=== PATIENT | female | born 1960 | race Caucasian/White ===

== ENCOUNTER 2018-04-17 15:53 | Outpatient (REF) | payer MEDICARE, MEDICAID, SELFPAY ==
[2018-04-17 16:39] LABS: ALT 28 U/L (12-78); AST 14 U/L (15-37); HDL Cholesterol 44 mg/dL (40-60); LDL CHOLESTEROL 87 mg/dL (<100)
[2018-04-17 16:40] LABS: Hemoglobin A1C 5.6 % (4.5-6.2)
[2018-04-17 16:55] LABS: Creatine Kinase 45 U/L (26-192)
== END 2018-04-17 16:13 ==
LOC: NCHCN 15:53
PROVIDERS: PCP Nurse Practitioner Family; Visit Provider Nurse Practitioner Family
DX: E78.5 Hyperlipidemia, unspecified (principal); F41.9 Anxiety disorder, unspecified; E66.9 Obesity, unspecified; M60.9 Myositis, unspecified; M54.2 Cervicalgia; M54.9 Dorsalgia, unspecified
CPT/HCPCS: 82550; 83721; 83036; 83718; 84450; 84460

== ENCOUNTER 2018-12-06 14:47 | Outpatient (REF) | payer MEDICARE, MEDICAID, SELFPAY ==
[2018-12-06 19:42] LABS: Bilirubin Negative (Negative); Blood Negative (Negative); Clarity Clear; Glucose Negative (Negative); Ketones Negative (Negative); Leukocyte Esterase Small (Negative); Nitrite Negative (Negative); Specific Gravity <= 1.005 (1.005-1.025); Urobilinogen 0.2 EU/dL (Up TO 0.2); pH 6.5 (5-8)
[2018-12-06 20:33] LABS: Bacteria Rare HPF (Negative); C & S Indicated? No; Casts Negative LPF (Negative); Crystals Negative HPF (Negative); Epithelial Cells Rare HPF (Negative); Mucus Negative (Negative); Other Cells Negative (Negative); RBC Negative (0-2); WBC 0-2 HPF (0-5)
== END 2018-12-06 15:07 ==
LOC: NCHCN 14:47
PROVIDERS: PCP Nurse Practitioner Family; Visit Provider Nurse Practitioner Family
DX: R30.0 Dysuria (principal)
CPT/HCPCS: 81003; 81015; 87480; 87510; 87660

== ENCOUNTER 2019-04-09 09:27 | Outpatient (REF) | payer MEDICARE, MEDICAID, SELFPAY ==
[2019-04-09 20:31] LABS: Anion Gap 8.9 mmol/L (3-11); BUN 14 mg/dL (7-18); CO2 27.1 mmol/L (21.0-32.0); CREATININE 0.84 mg/dL (0.55-1.02); Calcium 8.6 mg/dL (8.5-10.1); Chloride 108 mmol/L (98-107); Glucose 91 mg/dL (70-100); Potassium 4.2 mmol/L (3.5-5.1); Sodium 144 mmol/L (136-145); TSH 1.82 uIU/mL (0.36-3.74)
== END 2019-04-09 09:47 ==
LOC: NCHCN 09:27
PROVIDERS: PCP Nurse Practitioner Family; Visit Provider Nurse Practitioner Family
DX: I10 Essential (primary) hypertension (principal)
CPT/HCPCS: 80048; 84443

== ENCOUNTER 2020-04-14 11:16 | Outpatient (REF) | payer MEDICARE, MEDICAID, SELFPAY ==
[2020-04-20 06:28] LABS: Patient Race White; SARS-CoV-2 RNA Undetected (Undetected); SARS-CoV-2 Specimen Source Nasal
== END 2020-04-14 11:36 ==
LOC: NCHCN 11:16
PROVIDERS: PCP Nurse Practitioner Family; Visit Provider Nurse Practitioner Family
DX: Z20.828 Contact with and (suspected) exposure to other viral communicable diseases (principal)
CPT/HCPCS: U0003

== ENCOUNTER 2020-11-08 09:42 | Outpatient (REF) | payer MEDICARE, MEDICAID, SELFPAY ==
[2020-11-08 16:06] LABS: Anion Gap 8.5 mmol/L (3-11); BUN 10 mg/dL (7-18); CO2 28.5 mmol/L (21.0-32.0); CREATININE 0.9 mg/dL (0.55-1.02); Calcium 8.7 mg/dL (8.5-10.1); Calculated LDL 62 mg/dL (<100); Chloride 107 mmol/L (98-107); Cholesterol 122 mg/dL (<200); Glucose 94 mg/dL (74-106); HDL Cholesterol 46 mg/dL (40-60); Sodium 144 mmol/L (136-145); Triglyceride 73 mg/dL (<150)
== END 2020-11-08 09:43 | disposition home or self-care (01) ==
LOC: NCHCN 09:42
PROVIDERS: PCP Nurse Practitioner Family; Visit Provider Nurse Practitioner Family
DX: I10 Essential (primary) hypertension (principal); E78.5 Hyperlipidemia, unspecified
CPT/HCPCS: 80048; 80061

== ENCOUNTER 2021-02-02 15:24 | Outpatient (REF) | payer MEDICARE, MEDICAID, SELFPAY ==
[2021-02-02 20:40] LABS: ALT 31 U/L (14-59); AST 24 U/L (15-37); Albumin 3.4 g/dL (3.4-5.0); Alkaline Phosphatase 92 U/L (46-116); Anion Gap 9.6 mmol/L (3-11); BUN 11 mg/dL (7-18); Bilirubin, Total 0.3 mg/dL (0.2-1.0); CO2 26.4 mmol/L (21.0-32.0); CREATININE 0.8 mg/dL (0.55-1.02); Calcium 8.4 mg/dL (8.5-10.1); Calculated LDL 70 mg/dL (<100); Chloride 109 mmol/L (98-107); Cholesterol 131 mg/dL (<200); Glucose 91 mg/dL (74-106); HDL Cholesterol 50 mg/dL (40-60); Potassium 4.1 mmol/L (3.5-5.1); Sodium 145 mmol/L (136-145); Total Protein 6.4 g/dL (6.4-8.2); Triglyceride 58 mg/dL (<150)
== END 2021-02-02 15:25 | disposition home or self-care (01) ==
LOC: NCHCN 15:24
PROVIDERS: PCP Nurse Practitioner Family; Visit Provider Nurse Practitioner Family
DX: E78.5 Hyperlipidemia, unspecified (principal); I10 Essential (primary) hypertension
CPT/HCPCS: 80053; 80061

== ENCOUNTER 2022-01-09 09:37 | Outpatient (REF) | payer MEDICARE, MEDICAID, SELFPAY ==
[2022-01-09 19:40] LABS: ALT 28 U/L (14-59); AST 13 U/L (15-37); Albumin 3.4 g/dL (3.4-5.0); Alkaline Phosphatase 81 U/L (46-116); Anion Gap 7.2 mmol/L (3-11); BUN 14 mg/dL (7-18); Bilirubin, Total 0.4 mg/dL (0.2-1.0); CO2 28.8 mmol/L (21.0-32.0); CREATININE 0.9 mg/dL (0.55-1.02); Calcium 8.9 mg/dL (8.5-10.1); Chloride 106 mmol/L (98-107); Glucose 90 mg/dL (74-106); Potassium 4.2 mmol/L (3.5-5.1); Sodium 142 mmol/L (136-145)
[2022-01-09 20:37] LABS: Hemoglobin A1C 5.7 % (<5.7)
== END 2022-01-09 09:38 | disposition home or self-care (01) ==
LOC: NCHCN 09:37
PROVIDERS: PCP Nurse Practitioner Family; Visit Provider Nurse Practitioner Family
DX: Z13.1 Encounter for screening for diabetes mellitus (principal); I10 Essential (primary) hypertension; E78.5 Hyperlipidemia, unspecified
CPT/HCPCS: 80053; 83036

== ENCOUNTER 2022-03-22 11:12 | Outpatient (REF) | payer MEDICARE, MEDICAID, SELFPAY ==
[2022-03-22 20:25] LABS: ESR 16 mm/hr (0-30)
[2022-03-22 20:42] LABS: C-Reactive Protein 0.38 mg/dL (0.0-0.3)
== END 2022-03-22 11:13 | disposition home or self-care (01) ==
LOC: NCHCN 11:12
PROVIDERS: PCP Nurse Practitioner Family; Visit Provider Nurse Practitioner Family
DX: M25.511 Pain in right shoulder (principal); M25.512 Pain in left shoulder
CPT/HCPCS: 85652; 86140

== ENCOUNTER 2022-10-25 12:52 | Outpatient (REF) | payer MEDICARE, MEDICAID, SELFPAY ==
[2022-10-25 20:05] LABS: ALT 35 U/L (14-59); AST 21 U/L (15-37); Albumin 3.6 g/dL (3.4-5.0); Alkaline Phosphatase 100 U/L (46-116); Anion Gap 3.7 mmol/L (3-11); BUN 10 mg/dL (7-18); Bilirubin, Total 0.4 mg/dL (0.2-1.0); CO2 31.3 mmol/L (21.0-32.0); CREATININE 0.9 mg/dL (0.55-1.02); Calcium 9.1 mg/dL (8.5-10.1); Chloride 107 mmol/L (98-107); Estimated GFR 72.73 (mL/min/1.73m2); Glucose 86 mg/dL (74-106); Potassium 4.4 mmol/L (3.5-5.1); Sodium 142 mmol/L (136-145); Total Protein 7.2 g/dL (6.4-8.2)
== END 2022-10-25 12:53 | disposition home or self-care (01) ==
LOC: NCHCN 12:52
PROVIDERS: PCP Nurse Practitioner Family; Visit Provider Nurse Practitioner Family
DX: I10 Essential (primary) hypertension (principal); E78.5 Hyperlipidemia, unspecified
CPT/HCPCS: 80053

== ENCOUNTER 2023-04-06 18:25 | Outpatient (REF) | payer MEDICARE, MEDICAID, SELFPAY | END 2023-04-06 18:26 | disposition home or self-care (01) | LOC: NCHCN 18:25 | PROVIDERS: PCP Nurse Practitioner Family; Visit Provider Physician Assistant | DX: R35.0 Frequency of micturition (principal); R82.89 Other abnormal findings on cytological and histological examination of urine | CPT/HCPCS: 87086 ==

== ENCOUNTER 2023-10-31 08:16 | Outpatient (REF) | payer MEDICARE, MEDICAID, SELFPAY ==
[2023-10-31 20:43] LABS: Abs Immature Grans 0.01 10^3/uL (0.0-0.06); Absolute Basophil Count 0.04 10^3/uL (0.0-0.2); Absolute Eosinophil Count 0.13 10^3/uL (0.0-0.7); Absolute Monocyte Count 0.29 10^3/uL (0.1-0.8); Absolute Neutrophil Count 2.81 10^3/uL (1.2-6.7); Basophils % 0.8 %; Eosinophils % 2.5 %; HCT 40.9 % (36.0-46.0); HGB 13.8 g/dL (11.2-15.7); Immature Grans % 0.2 %; Lymphocytes % 36.7 %; MCH 29.4 pg (27.0-33.0); MCHC 33.7 % (32.0-36.0); MCV 87 fL (80-95); MPV 10.9 fL (8.0-11.0); Monocytes % 5.6 %; Neutrophils % 54.2 %; Platelet Count 215 10^3/uL (130-400); RBC 4.69 10^6/uL (3.93-5.22); RDW 13.5 % (11.7-14.6); WBC 5.18 10^3/uL (4.4-10.8)
[2023-10-31 21:04] LABS: ALT 39 U/L (14-59); AST 21 U/L (15-37); Albumin 3.5 g/dL (3.4-5.0); Alkaline Phosphatase 106 U/L (46-116); Anion Gap 6.5 mmol/L (3-11); BUN 13 mg/dL (7-18); Bilirubin, Total 0.4 mg/dL (0.2-1.0); CO2 29.5 mmol/L (21.0-32.0); CREATININE 0.8 mg/dL (0.55-1.02); Calcium 8.9 mg/dL (8.5-10.1); Calculated LDL 107 mg/dL (<100); Chloride 108 mmol/L (98-107); Cholesterol 173 mg/dL (<200); Estimated GFR 83.26 (mL/min/1.73m2); Glucose 104 mg/dL (74-106); HDL Cholesterol 46 mg/dL (40-60); Sodium 144 mmol/L (136-145); TSH (W/Ref FT4) 1.95 uIU/mL (0.36-3.74); Triglyceride 101 mg/dL (<150)
== END 2023-10-31 08:17 | disposition home or self-care (01) ==
LOC: NCHCN 08:16
PROVIDERS: PCP Nurse Practitioner Family; Visit Provider Physician Assistant
DX: I10 Essential (primary) hypertension (principal)
CPT/HCPCS: 80053; 80061; 84443; 85025

== ENCOUNTER 2024-04-29 12:35 | Outpatient (REF) | payer MEDICARE, MEDICAID, SELFPAY ==
[2024-05-03 14:10] LABS: Codeine Negative ng/mL (Cutoff: 25); Dihydrocodeine 40 ng/mL (Cutoff: 25); Hydrocodone 27 ng/mL (Cutoff: 25); Hydromorphone Negative ng/mL (Cutoff: 25); Morphine Negative ng/mL (Cutoff: 25); Naloxone Negative ng/mL (Cutoff: 25); Norhydrocodone 69 ng/mL (Cutoff: 25); Noroxycodone Negative ng/mL (Cutoff: 25); Noroxymorphone Negative ng/mL (Cutoff: 25); Opiates Interpretation Positive.
== END 2024-04-29 12:36 | disposition home or self-care (01) ==
LOC: NCHCN 12:35
PROVIDERS: PCP Nurse Practitioner Family; Visit Provider Physician Assistant
DX: M48.56XS Collapsed vertebra, not elsewhere classified, lumbar region, sequela of fracture (principal); Z79.899 Other long term (current) drug therapy
CPT/HCPCS: 80361; 80362; 80365

== ENCOUNTER 2024-10-29 17:29 | Outpatient (REF) | payer MEDICARE, MEDICAID, SELFPAY ==
[2024-10-29 20:59] LABS: ALT 57 U/L (14-59); AST 43 U/L (15-37); Albumin 3.5 g/dL (3.4-5.0); Alkaline Phosphatase 124 U/L (46-116); Anion Gap 7.4 mmol/L (3-11); BUN 11 mg/dL (7-18); Bilirubin, Total 0.4 mg/dL (0.2-1.0); CO2 28.6 mmol/L (21.0-32.0); CREATININE 0.9 mg/dL (0.55-1.02); Calcium 9.2 mg/dL (8.5-10.1); Chloride 107 mmol/L (98-107); Estimated GFR 71.83 (mL/min/1.73m2); Glucose 127 mg/dL (74-106); Potassium 3.6 mmol/L (3.5-5.1); Sodium 143 mmol/L (136-145); Total Protein 7.2 g/dL (6.4-8.2)
[2024-10-31 10:00] LABS: HIV-1/2 Ag & Ab Screen Negative (Negative)
[2024-10-31 10:13] LABS: Hepatitis C Ab w Rflx HCV PCR Negative (Negative)
== END 2024-10-29 17:30 | disposition home or self-care (01) ==
LOC: NCHCN 17:29
PROVIDERS: PCP Nurse Practitioner Family; Visit Provider Physician Assistant
DX: Z11.59 Encounter for screening for other viral diseases (principal); Z11.4 Encounter for screening for human immunodeficiency virus [HIV]
CPT/HCPCS: 80053; 86803; 87389